=== PATIENT | female | born 2000 | race Caucasian/White ===

== ENCOUNTER 2021-08-19 22:03 | Emergency (ER) | payer OTHER ==
[~2021-08-19] VITALS: Ht 162.6 cm; Wt 95.5 kg
[2021-08-19 22:15] VITALS: BP 139/94
[2021-08-19] MEDS ORDERED: GELATIN SPONGE SIZE 12-7MM SPONGE. ONE (22:51)
[2021-08-19] MEDS ORDERED: DIPHTH,PERTUSS(ACELL),TET TOX 0.5 ML DISP.SYRIN. VAX IM ONE (23:00)
[2021-08-19] MEDS ORDERED: GELATIN SPONGE SIZE 12-7MM SPONGE. TP ONE (23:00)
--- NOTE | 2021-08-19 23:07 | PHYS DOC ---
Past History Additional Past Medical Histor: Tachycardia Past Surgical History: No Surgical History General Adult EDM: Chief Complaint: FINGER INJURY HPI: HPI: ".. I was fixing dinner.. and using the slicer board.. with a new blade.. and went to deep ... and cut the tip off my little finger... It will not stop bleeding.. keeps restarting.." Patient is a 21 year old female who presents with above history and complaints of avulsion injury of right fifth fingertip. The tissue on the fingertip has been completely removed as well as part of the nail. Distal neurovascular is intact. Range of motion is intact. Patient denies any history immunosuppression. No recent travel. No history of severe ill contacts. Patient states its been years since her last tetanus. Patient is right-hand dominant. Review of Systems: Review of Systems: Constitutional: Denies fever or chills Eyes: Denies change in visual acuity HENT: Denies nasal congestion or sore throat Respiratory: Denies cough or shortness of breath Cardiovascular: Denies chest pain or edema GI: Denies abdominal pain, nausea, vomiting, bloody stools or diarrhea : Denies dysuria Musculoskeletal: Denies back pain or joint pain Integument: Complains of finger laceration Neurologic: Denies headache, focal weakness or sensory changes Endocrine: Denies polyuria or polydipsia Lymphatic: Denies swollen glands Psychiatric: Denies depression or anxiety Family History: Family History: Noncontributory to presentation Current Medications: Current Meds: Current Medications Medications (Trade) Dose Ordered Sig/Kevan Start Time Stop Time Status Last Admin Dose Admin Diphtheria/ Tetanus/Acell Pertussis (Boostrix) 0.5 ml ONCE ONCE 08/19/21 23:00 08/19/21 23:01 UNV Gelatin (Gelfoam Size 12-7mm) 1 each 1X ONCE 08/19/21 23:00 08/19/21 23:01 UNV Physical Exam: PE: Constitutional: Well developed, well nourished, no acute distress, non-toxic a ppearance. [] HENT: Normocephalic, atraumatic, bilateral external ears normal, oropharynx moist, no oral exudates, nose normal. [] Eyes: PERRLA, EOMI, conjunctiva normal, no discharge. Glasses Neck: Normal range of motion, no tenderness, supple, no stridor. [] Cardiovascular:Heart rate regular rhythm, no murmur [] Lungs & Thorax: Bilateral breath sounds equal at apex auscultation [] Abdomen: Bowel sounds normal, soft, no tenderness, no masses, no pulsatile masses. [] Skin: Warm, dry, no erythema, no rash. [] Back: No tenderness, no CVA tenderness. [] Extremities: No tenderness, no cyanosis, no clubbing, ROM intact, no edema. [] Except laceration/avulsion fingertip right hand fifth finger Neurologic: Alert and oriented X 3, normal motor function, normal sensory function, no focal deficits noted. [] Psychologic: Affect anxious, judgement normal, mood normal. [] Current Patient Data: Vital Signs: Vital Signs Date Time Temp Pulse Resp B/P (MAP) Pulse Ox O2 Delivery O2 Flow Rate FiO2 08/19/21 22:15 98.6 102 16 139/94 (109) 97 Room Air EKG: EKG: [] Radiology/Procedures: Radiology/Procedures: [] Heart Score: C/O Chest Pain: N/A Risk Factors: Risk Factors: DM, Current or recent (<one month) smoker, HTN, HLP, family history of CAD, obesity. Risk Scores: Score 0 - 3: 2.5% MACE over next 6 weeks - Discharge Home Score 4 - 6: 20.3% MACE over next 6 weeks - Admit for Clinical Observation Score 7 - 10: 72.7% MACE over next 6 weeks - Early Invasive Strategies Course & Med Decision Making: Course & Med Decision Making Pertinent Labs and Imaging studies reviewed. (See chart for details) Procedure note-wound care-laceration avulsion 1 cm x 1 cm Patient's finger was previously clean. Current dressing removed. Avulsion site again started bleeding.. Area clean. Small amount of antibiotic ointment and Gelfoam applied to the avulsed area. Dressing applied. Patient keep the dressing clean and dry. Patient wear current dressing for the next 3 days aft erwards remove dressing. Then start applying Polysporin 4 times a day with Band-Aid until completely healed. Monitor for infection. Follow-up primary care. Return if any concerns. Tetanus booster was ordered. Impression: 1. Laceration/avulsion fingertip fifth finger right [] Dragon Disclaimer: Dragon Disclaimer: This electronic medical record was generated, in whole or in part, using a voice recognition dictation system. Departure Departure: Impression: Primary Impression: Laceration Disposition: HOME / SELF CARE / HOMELESS Condition: GUARDED Patient Instructions: Laceration Care, Adult, [id number] Additional Instructions: Keep laceration, clean and dry. Wear current dressing 3 days. Then remove and use polysporin 4x day with bandaid until healed. Follow up primary. Return if any concerns. Dragon Disclaimer This chart was dictated in whole or in part using Voice Recognition software in a busy, high-work load, and often noisy Emergency Department environment. It may contain unintended and wholly unrecognized errors or omissions. Dragon Disclaimer This chart was dictated in whole or in part using Voice Recognition software in a busy, high-work load, and often noisy Emergency Department environment. It may contain unintended and wholly unrecognized errors or omissions. JANNIE TINEO MD Aug 19, 2021 23:07
== END 2021-08-19 23:30 | disposition home or self-care (01) ==
LOC: ER 22:03
DX: S61.216A Laceration without foreign body of right little finger without damage to nail, initial encounter (principal); W27.8XXA Contact with other nonpowered hand tool, initial encounter; Y93.89 Activity, other specified; Y92.89 Other specified places as the place of occurrence of the external cause; Y99.8 Other external cause status
CPT/HCPCS: 90471; 90715; 99283